=== PATIENT | male | born 1975 | race Asian ===

== ENCOUNTER 2018-09-14 17:32 | Emergency (ER) | payer OTHER, SELFPAY ==
[2018-09-14 17:34] VITALS: BP 129/83; PULSE 78; RESP 16; TEMP 37.1; O2SAT 100
--- NOTE | 2018-09-14 18:46 | ED.URI ---
HPI - URI/Sore Throat <Tia Bush PA-C - Last Filed: 09/14/18 22:04> General Chief Complaint: Upper Respiratory Symptoms Stated Complaint: nose swelling/redness Time Seen by Provider: 09/14/18 18:30 Source: patient Mode of arrival: ambulatory Limitations: no limitations History of Present Illness HPI Narrative: This 42-year-old male complains of persistent nasal allergy symptoms becoming more bothersome over the last 3 weeks. He states that he has persistent sneezing, drainage, itchy, scratchy throat and watery eyes. He has nasal congestion and postnasal drip. He states that he could not sleep last few nights due to the sneezing. He has tried Claritin and Benadryl, states Benadryl allows him to sleep for a few hours, Claritin did not help. He states he does not have cough, wheeze or dyspnea. He has not had fever and does not feel sick. He also has a pimple on the right side of his nose and feels a little sore on the inside. He denies any other concerns or new complaints Related Data Home Medications Medication Instructions Recorded Confirmed allopurinol 400 mg PO Q DAY #0 07/02/17 cephalexin #0 07/02/17 naproxen [Naprosyn] #0 07/02/17 Previous Rx's Medication Instructions Recorded doxycycline hyclate 100 mg PO Q12H #14 cap 07/03/17 hydrocodone-acetaminophen [[place]] 1 tab PO Q6HP PRN #10 tab 07/03/17 colchicine 0.6 mg PO BID #14 cap 07/18/17 oxycodone-acetaminophen [Percocet] 1 - 2 tab PO Q4HP PRN #10 tab 07/18/17 budesonide [Rhinocort Allergy] 2 spray NASAL DAILY #8.43 ml 09/14/18 cetirizine-pseudoephedrine 1 tab PO Q12H PRN #30 tab 09/14/18 [Zyrtec-D] Allergies Allergy/AdvReac Type Severity Reaction Status Date / Time No Known Drug Allergies Allergy Verified 09/14/18 17:37 Review of Systems <Tia Bush PA-C - Last Filed: 09/14/18 22:04> Review of Systems ROS Unobtainable: All systems reviewed & are unremarkable except as noted in HPI and below PFSH <Tia Bush PA-C - Last Filed: 09/14/18 22:04> Medical History Seasonal allergies (Chronic) Social History Smoking Status: Current some day smoker Social History Smoking Status: Current some day smoker Exam <Tia Bush PA-C - Last Filed: 09/14/18 22:04> Narrative Exam Narrative: GENERAL APPEARANCE: Patient sitting comfortably, in no distress. HEAD: No sinus TTP. EYES: PERRL, EOMI. EARS: Normal auditory canals, TMS intact, partly occluded by cerumen NOSE: Edematous nasal mucosa, minimal clear drainage. Right external superior nostril there is a small erythematous papule with a sandoval, no lesions in the nares ORAL CAVITY: Normal oropharynx. THROAT: No erythema or exudate, PND noted NECK/THYROID: Neck supple, full range of motion, no cervical lymphadenopathy. LUNGS: Clear to auscultation bilaterally, no cough on exam. HEART: RRR without murmur, nl S1, S2, no S3 or S4. Initial Vital Signs Initial Vital Signs: Vital Signs Temperature 98.7 F 09/14/18 17:34 Pulse Rate 78 09/14/18 17:34 Respiratory Rate 16 09/14/18 17:34 Blood Pressure 129/83 09/14/18 17:34 Pulse Oximetry 100 09/14/18 17:34 <Félix Holman DO - Last Filed: 09/14/18 22:20> Initial Vital Signs Initial Vital Signs: Vital Signs Temperature 98.7 F 09/14/18 17:34 Pulse Rate 78 09/14/18 17:34 Respiratory Rate 16 09/14/18 17:34 Blood Pressure 129/83 09/14/18 17:34 Pulse Oximetry 100 09/14/18 17:34 Course <Tia Bush PA-C - Last Filed: 09/14/18 22:04> Vital Signs - 8 hr 09/14/18 17:34 Temperature 98.7 F Pulse Rate 78 Respiratory Rate 16 Blood Pressure 129/83 Pulse Oximetry 100 <DO Charo Monzon Last Filed: 09/14/18 22:20> Vital Signs - 8 hr 09/14/18 17:34 Temperature 98.7 F Pulse Rate 78 Respiratory Rate 16 Blood Pressure 129/83 Pulse Oximetry 100 Discharge Plan Departure Patient Disposition: Home Clinical Impression: Seasonal allergies, Nasal sore Discharge Date/Time: 09/14/18 19:20 Interventions: ED Discharge Assessment Last Done: 09/14/18 19:19 Instructions: Allergic Rhinitis Activity Restrictions/Additional Instructions: Please return if you have new symptoms such as fever or breathing difficulties. Otherwise, please use your Benadryl for tonight. You can take 2 tablets up to every 4 hr (you can take a 2nd dose if you wake up sneezing like you did last night). I have sent prescriptions in for a less sedating antihistamine called cetirizine, with a decongestant for you to start tomorrow. I have also sent a prescription for a steroid nasal spray to help with your nasal symptoms. If your not cover these, the pharmacist can help you get the equivalents over the counter. In addition, please use benzoyl peroxide, i.e. Clearasil, for the sore on the outside of your nose twice daily. [place]/C whether any other medicines or changes are needed Prescriptions: New cetirizine-pseudoephedrine [Zyrtec-D] 5-120 mg tablet extended release 12 hr 1 tab PO Q12H PRN (Reason: allergy symptoms) Qty: 30 RF: 0 budesonide [Rhinocort Allergy] 32 mcg/actuation spray,non-aerosol 2 spray NASAL DAILY Qty: 8.43 RF: 0 No Action cephalexin 250 mg capsule Qty: 0 RF: 0 allopurinol 100 MG tablet 400 mg PO Q DAY Qty: 0 RF: 0 naproxen [Naprosyn] 500 MG tablet Qty: 0 RF: 0 doxycycline hyclate 100 MG capsule 100 mg PO Q12H Qty: 14 RF: 0 hydrocodone-acetaminophen [[place]] 5 MG/325 MG tablet 1 tab PO Q6HP PRNQty: 10 RF: 0 colchicine 0.6 MG capsule 0.6 mg PO BID Qty: 14 RF: 0 oxycodone-acetaminophen [Percocet] 5 MG/325 MG tablet 1 - 2 tab PO Q4HP PRNQty: 10 RF: 0 Referrals: [facility] [Provider Group] <Félix Holman, DO - Last Filed: 09/14/18 22:20> Cosign ED Attending Kaye Attestation: I was available for consultation during this patient's emergency department encounter
== END 2018-09-14 19:20 | disposition home or self-care (01) ==
PROVIDERS: Emergency Provider Internal Medicine; Family Provider Anesthesiology Pain Medicine
DX: J34.89 Other specified disorders of nose and nasal sinuses (principal); J30.2 Other seasonal allergic rhinitis
CPT/HCPCS: 99282